=== PATIENT | male | born 1980 | race Caucasian/White ===

== ENCOUNTER 2019-07-03 20:00 | Emergency (ER) | payer BC, OTHER ==
[~2019-07-03] VITALS: Ht 157.5 cm; Wt 90.7 kg
[~2019-07-03 20:00] MED LIST: IBUPROFEN 600600 M1 PO; NOHOMEMEDICATIONS; NORCO 5-325 TA1 EACH PO; PENICILLIN VK500 M1 PO; VICODIN ES TAB1 EACH PO
[2019-07-03] MEDS ORDERED: PREDNISONE 20 M20 MG PO (21:30)
[2019-07-03] MEDS ORDERED: PEPCID20 MG PO (21:30)
[2019-07-03 22:01] VITALS: BP 128/73
== END 2019-07-03 22:02 | disposition home or self-care (01) ==
LOC: ER 20:00
DX: L50.0 Allergic urticaria (principal); T78.1XXA Other adverse food reactions, not elsewhere classified, initial encounter; F17.200 Nicotine dependence, unspecified, uncomplicated; Z88.5 Allergy status to narcotic agent; Y92.89 Other specified places as the place of occurrence of the external cause

== ENCOUNTER 2020-09-21 08:05 | Emergency (ER) | payer BC, OTHER ==
[~2020-09-21] VITALS: Ht 188 cm; Wt 90.7 kg
[~2020-09-21 08:05] MED LIST changes: +PEPCID20 MG PO; +PREDNISONE 20 M20 MG PO
[2020-09-21] MEDS ORDERED: MELOXICAM15 MG PO (08:55)
[2020-09-21] MEDS ORDERED: VEETIDS 500500 MG PO (08:55)
[2020-09-21 09:01] VITALS: BP 134/81
== END 2020-09-21 09:15 | disposition home or self-care (01) ==
LOC: ER 08:05
DX: K04.7 Periapical abscess without sinus (principal); Z79.899 Other long term (current) drug therapy